=== PATIENT | female | born 1980 | race Caucasian/White ===

== ENCOUNTER 2017-06-18 12:30 | Emergency (ER) | payer OTHER ==
--- NOTE | 2017-06-18 13:09 | ERPHSYRPT ---
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 headache localized to the right temporal region, with nausea vomiting and photosensitivty. pain increased with movement. Physician History: The patient is a 36-year-old female with her complaining of a right sided headache that she woke up with on Monday morning. It is now Monday morning. The headache is getting worse. She has tried Tylenol and Benadryl without relief. She is now nauseated and has vomited. Light really bothers her. She hasn't had a headache this bad in a long time. She denies numbness or tingling. Her past medical history is significant for COPD. Timing/Duration: day(s) (4) Quality: sharpness Head Pain Location: temporal (right), parietal (right) Severity of Pain-Max: severe Severity of Pain-Current: severe Recent Head Trauma: occasional headaches Modifying Factors: Improves With: exposure to light Associated Symptoms: nausea/vomiting, No scotoma, No speech problems, No vision changes, No visual disturbance Previous symptoms: same symptoms as today Allergies/Adverse Reactions: Penicillins Allergy (Verified 06/11/16 12:00) Home Medications: Albuterol 1 puff PO QID PRN 06/11/16 [History] Hx Tetanus, Diphtheria Vaccination/Date Given: Yes Hx Influenza Vaccination/Date Given: No Hx Pneumococcal Vaccination/Date Given: No Immunizations Up to Date: Yes - Review of Systems Constitutional: No Fever, No Chills Eyes: Photophobia Ears, Nose, & Throat: No Symptoms Respiratory: No Cough, No Dyspnea Cardiac: No Chest Pain, No Edema, No Syncope Abdominal/Gastrointestinal: No Abdominal Pain, No Nausea, No Vomiting, No Diarrhea Genitourinary Symptoms: No Dysuria Musculoskeletal: No Back Pain, No Neck Pain Skin: No Rash Neurological: Headache Psychological: No Symptoms Endocrine: No Symptoms Hematologic/Lymphatic: No Symptoms Immunological/Allergic: No Symptoms All Other Systems: Reviewed and Negative - Past Medical History Pertinent Past Medical History: No Neurological History: Migraines ENT History: No Pertinent History Cardiac History: No Pertinent History Respiratory History: Asthma, COPD Endocrine Medical History: No Pertinent History Musculoskeletal History: No Pertinent History GI Medical History: No Pertinent History History: No Pertinent History Psycho-Social History: Anxiety Female Reproductive Disorders: No Pertinent History Other Medical History: gallbladder disorder - Past Surgical History Past Surgical History: Yes Female Surgical History: Tubal Ligation, Other Other Surgical History: D&C. BTL - Social History Smoking Status: Current every day smoker How long have you smoked: 0.5 Exposure to second hand smoke: Yes Drug Use: marijuana Patient Lives Alone: No - Female History Hx Last Menstrual Period: 06/18/17 Hx Now: No - Nursing Vital Signs Nursing Vital Signs: Initial Vital Signs Temperature 98.4 F 06/18/17 12:38 Pulse Rate 106 H 06/18/17 12:38 Respiratory Rate 20 06/18/17 12:38 Blood Pressure 171/45 06/18/17 12:38 O2 Sat by Pulse Oximetry 98 06/18/17 12:38 Pain Scale Pain Intensity 8 - Physical Exam General Appearance: moderate distress Eye Exam: eyes nml inspection, photophobia Ears, Nose, Throat Exam: normal ENT inspection, moist mucous membranes Neck Exam: normal inspection, supple, full range of motion, No meningismus Respiratory Exam: normal breath sounds, lungs clear Cardiovascular Exam: regular rate/rhythm, normal heart sounds Gastrointestinal/Abdominal Exam: soft, No tenderness, No distention Back Exam: normal inspection, normal range of motion Extremity Exam: normal inspection Mental Status Exam: alert, oriented x 3, 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
[2017-06-18] MEDS ORDERED: Phenergan 25 MG INJ IM ONE (13:13)
[2017-06-18] MEDS ORDERED: TORAdol 30 mg Injection IM ONE (13:13)
[2017-06-18] MEDS ORDERED: Phenergan 25 MG INJ ONE (13:18)
[2017-06-18] MEDS ORDERED: TORAdol 30 mg Injection ONE (13:19)
[2017-06-18 14:16] VITALS: BP 116/88; PULSE 89; O2SAT 100
== END 2017-06-18 14:15 | disposition home or self-care (01) ==
LOC: ED 12:30
DX: R51 Headache (principal); J44.9 Chronic obstructive pulmonary disease, unspecified; R11.2 Nausea with vomiting, unspecified
CPT/HCPCS: 96372; 99283; J1885; J2550

== ENCOUNTER 2017-12-17 12:41 | Emergency (ER) | payer OTHER ==
[2017-12-17 13:08] VITALS: BP 153/103; PULSE 105; O2SAT 100
[2017-12-17] MEDS ORDERED: BENADRYL 50 MG/ML IV ONE (13:17)
[2017-12-17] MEDS ORDERED: Sodium Chloride 0.9% 1000 ML 1,000 ML IV SCH (13:30)
[2017-12-17 13:47] LABS: BASOPHIL % 0.4 % (0.0-0.4); Basophil (Absolute #) 0.02 (0-0.4); Eosinophil % 0.2 % (0.00-5.0); Eosinophil (Absolute #) 0.01 (0-0.5); Granulocyte Absolute (ANC) 1.59 (1.4-6.9); Granulocytes % 30.7 % (36.0-66.0); Hematocrit 31.3 % (35-47); Hemoglobin 11.2 gm/dl (12.0-16.0); Lymphocyte (Absolute #) 2.48 (1.0-4.6); Lymphocytes % 47.9 % (24.0-44.0); Mean Cell Volume 89.7 fl (78-100); Mean Corpuscular Hgb Concent. 35.8 g/dl (32-36); Mean Platelet Volume 9.5 fl (6-9.5); Monocyte (Absolute #) 1.08 (0.0-1.3); Monocytes % 20.8 % (0.0-12.0); Platelet Count 431 K/mm3 (150-450); Red Blood Count 3.49 M/mm3 (4.1-5.4); Red Cell Distribution Width 13.7 % (11.5-14.0); White Blood Count 5.2 K/mm3 (4.0-10.5)
--- NOTE | 2017-12-17 14:01 | ERPHSYRPT ---
- History of Present Illness Time Seen by Provider: 12/17/17 12:55 Source: patient Exam Limitations: clinical condition Patient Subjective Stated Complaint: states used some "gelclair" mouth gel for sores in her mouth one hour ago and suddenly had dry mouth and a feeling that her mouth was swelling. also having twitching of left eye. Triage Nursing Assessment: to room per w/c. skin w/d, color sallow. patient very anxious, tearful at times. restless on the cot. hx of myasthenia gravis and lymphoma. taking chemo treatments in [place], in. states is in [place] for an emergency and hasn't been able to see a cancer doctor yet. Physician History: PATIENT WITH A HISTORY OF MYSTHENA GRAVIS, LYMPHOMA, AND METHAMPHAMINE ABUSE. LAST COURSE OF CHEMOTHERAPY 2 WEEKS AGO WHILE LIVING IN [facility] UNDER THE CARE OF AN ONCOLOGIST. PATIENT USED [employer] ORAL MOUTH WASH TODAY FOR ORAL ULCERATIONS AND COMPLAINS OF ACUTE ONSET OF BURNING OF MOUTH AND TWITCHING OF LEFT EYE ASSOCIATED WITH BEING CONFUSED. PATIENT STATES SHE WASHED OUT HER MOUTH PRIOR TO ARRIVAL. Timing/Duration: abrupt onset Severity: moderate ENT Location: mouth (RINSED MOUTH WITH TAP WATER) Prearrival Treatment: no prearrival treatment Modifying Factors: Improves With: other (AFTER USING ADHERENT MOUTH WASH) Associated Symptoms: other (BURNING OF TONGUE AND ORAL CAVITY) Allergies/Adverse Reactions: Penicillins Allergy (Verified 12/17/17 12:54) Home Medications: Albuterol 1 puff PO QID PRN 06/11/16 [History] Benzonatate [Tessalon Perle] 100 mg PO UD 12/17/17 [History] Clonazepam 0.5 mg [Klonopin 0.5 MG] 0.5 mg PO UD 12/17/17 [History] Fluticasone/Vilanterol [Breo Ellipta 100-25 Mcg INH] 1 each IH DAILY 12/17/17 [ History] Nystatin/TCN/Hc/Diphenhydram [Kellie's Magic Mouthwash] 0 ml PO UD 12/17/17 [ History] Omeprazole 20 MG [Prilosec 20 mg] 20 mg PO DAILY 12/17/17 [History] Ondansetron ODT 4 MG [Zofran Odt 4 mg] 4 mg PO Q6H PRN PRN 12/17/17 [ History] Pyridostigmine [place] [Mestinon] 60 mg PO UD 12/17/17 [History] Tramadol HCl 50 mg [Ultram 50 mg] 50 mg PO UD 12/17/17 [History] Hx Tetanus, Diphtheria Vaccination/Date Given: No Hx Influenza Vaccination/Date Given: No Hx Pneumococcal Vaccination/Date Given: No - Review of Systems Constitutional: No Fever, No Chills Eyes: No Symptoms Ears, Nose, & Throat: No Symptoms, Mouth Pain Respiratory: No Cough, No Dyspnea Cardiac: No Symptoms, No Chest Pain, No Edema, No Syncope Abdominal/Gastrointestinal: No Abdominal Pain, No Nausea, No Vomiting, No Diarrhea Genitourinary Symptoms: No Symptoms, No Dysuria Musculoskeletal: No Back Pain, No Neck Pain Skin: No Rash Neurological: No Dizziness, No Focal Weakness, No Sensory Changes Psychological: No Symptoms Endocrine: No Symptoms All Other Systems: Reviewed and Negative - Past Medical History Pertinent Past Medical History: Yes Neurological History: Migraines ENT History: No Pertinent History Cardiac History: No Pertinent History Respiratory History: Asthma, COPD Endocrine Medical History: No Pertinent History Musculoskeletal History: No Pertinent History GI Medical History: No Pertinent History History: No Pertinent History Psycho-Social History: Anxiety Female Reproductive Disorders: No Pertinent History Other Medical History: gallbladder disorder. lymphoma. myasthenia gravis - Past Surgical History Past Surgical History: Yes Musculoskeletal: Orthopedic Surgery Female Surgical History: Tubal Ligation, Other Other Surgical History: D&C. BTL. ankle fx - Social History Smoking Status: Current every day smoker How long have you smoked: 0.5 Exposure to second hand smoke: Yes Drug Use: marijuana Patient Lives Alone: No - Female History Hx Last Menstrual Period: now Hx Now: No - Nursing Vital Signs Nursing Vital Signs: Initial Vital Signs Temperature 98.7 F 12/17/17 12:45 Pulse Rate 105 H 12/17/17 12:45 Respiratory Rate 16 12/17/17 12:45 Blood Pressure 153/103 12/17/17 12:45 O2 Sat by Pulse Oximetry 100 12/17/17 12:45 Pain Scale Pain Intensity 0 - Physical Exam General Appearance: no apparent distress, alert, other (APPEARS HYPERACTIVE) Eye Exam: bilateral eye: PERRL, EOMI Ear Exam: bilateral ear: auricle normal, canal normal, TM normal Nasal Exam: normal inspection Throat Exam: pharynx normal (NO EVIDENCE OF ORAL CANKER ULCERATIONS), moist mucus membranes, No tonsillar exudate Neck Exam: normal inspection, supple Cardiovascular/Respiratory Exam: normal breath sounds, regular rate/rhythm Abdominal Exam: non-tender, soft Neurologic Exam: alert, oriented x 3, sensation nml, other (PATIENT APPEARS PARONOID, HYPERACTIVE), No motor deficits Skin Exam: normal color, warm, dry SpO2 Interpretation: normal SpO2: 100 Oxygen Delivery: Room Air Ordered Tests: Active Orders 24 hr Category Date Time Status EKG-ER Only STAT Care 12/17/17 13:17 Active CBC W DIFF Stat Lab 12/17/17 13:30 Received CMP Stat Lab 12/17/17 13:30 Received ETHYL ALCOHOL Stat Lab 12/17/17 13:30 Received MAGNESIUM Stat Lab 12/17/17 13:30 Received UA W/RFX UR CULTURE Stat Lab 12/17/17 13:44 Ordered Urine Triage Profile Stat Lab 12/17/17 13:21 Uncollected Medication Summary Generic Name Dose Route Start Last Admin Trade Name Freq PRN Reason Stop Dose Admin Sodium Chloride 1,000 mls @ 500 mls/hr 12/17/17 13:30 Sodium Chloride 0.9% 1000 Ml IV 01/16/18 13:29 .Q2H KESHIA Discontinued Medications Generic Name Dose Route Start Last Admin Trade Name Freq PRN Reason Stop Dose Admin Diphenhydramine HCl 25 mg 12/17/17 13:17 Benadryl 50 Mg/Ml IV 12/17/17 13:18 STAT ONE - Progress Progress Note: 12/17/17 14:06 PATIENT REFUSED EKG, HEAD CT SCAN AND ACCESS OF INFUSAPORT, REQUEST AMA, CALL HEAD NURSING FOOD AND 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
[2017-12-17 14:06] LABS: ALKALINE PHOSPHATASE 69 U/L (38-126); ANION GAP 11.7 MEQ/L (5-15); BLOOD UREA NITROGEN 11 mg/dL (7-17); CHLORIDE 107 mmol/L (98-107); Calcium 9.4 mg/dL (8.4-10.2); Carbon Dioxide 25 mmol/L (22-30); Creatinine 1 0.65 mg/dL (0.52-1.04); Glucose 97 mg/dL (74-106); Potassium 3.3 mmol/L (3.5-5.1); SGOT/AST 44 U/L (14-36); SGPT/ALT 44 U/L (0-35); SODIUM 141 mmol/L (137-145); Total Protein 6.7 g/dL (6.3-8.2)
== END 2017-12-17 14:19 | disposition left against medical advice (07) ==
LOC: ED 12:41
DX: K12.30 Oral mucositis (ulcerative), unspecified (principal); Z79.899 Other long term (current) drug therapy
CPT/HCPCS: 36000; 36415; 80053; 80307; 83735; 85025; 99284; J1642; G0480

== ENCOUNTER 2018-02-05 14:23 | Emergency (ER) | payer OTHER ==
[2018-02-05 14:45] VITALS: O2SAT 99
--- NOTE | 2018-02-05 15:04 | ERPHSYRPT ---
- History of Present Illness Time Seen by Provider: 02/05/18 14:56 Source: patient Exam Limitations: no limitations Patient Subjective Stated Complaint: pt reports a spot on her head she noticed last week. states that it has gradually grown and opened yesterday leaking puss. reports dizziness. reports severe pain. Triage Nursing Assessment: pt is aox3, pupils perrl, pt afebrile, pt resps easy and non labored. skin pink warm dry. pt has an abscess to the top of the head. abscess appears to be draining some whitish yellow exudate. skin around the area is red and warm to the touch. Physician History: The patient is a 37-year-old female with her mother complaining of a worsening abscess on the top of her head for one week. 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 She currently has no hair on her head. Last night she put a warm compress on the abscess and it drained pus. She denies fever. Her past medical history is significant for GERD, cancer of the thymus gland, and asthma. Timing/Duration: week(s) (1), gradual onset, worse Quality: painful Severity: moderate Location: scalp Possible Causes: no cause identified Allergies/Adverse Reactions: Penicillins Allergy (Verified 02/05/18 14:45) Home Medications: Albuterol 1 puff PO QID PRN 06/11/16 [History] Benzonatate [Tessalon Perle] 100 mg PO UD 12/17/17 [History] Clonazepam 0.5 mg [Klonopin 0.5 MG] 0.5 mg PO UD 12/17/17 [History] Fluticasone/Vilanterol [Breo Ellipta 100-25 Mcg INH] 1 each IH DAILY 12/17/17 [ History] Nystatin/TCN/Hc/Diphenhydram [Kellie's Magic Mouthwash] 0 ml PO UD 12/17/17 [ History] Omeprazole 20 MG [Prilosec 20 mg] 20 mg PO DAILY 12/17/17 [History] Ondansetron ODT 4 MG [Zofran Odt 4 mg] 4 mg PO Q6H PRN PRN 12/17/17 [ History] Pyridostigmine [place] [Mestinon] 60 mg PO UD 12/17/17 [History] Tramadol HCl 50 mg [Ultram 50 mg] 50 mg PO UD 12/17/17 [History] Hx Tetanus, Diphtheria Vaccination/Date Given: Yes Hx Influenza Vaccination/Date Given: Yes Hx Pneumococcal Vaccination/Date Given: Yes Immunizations Up to Date: Yes - Review of Systems Constitutional: No Fever, No Chills Eyes: No Symptoms Ears, Nose, & Throat: No Symptoms Respiratory: No Cough, No Dyspnea Cardiac: No Chest Pain, No Edema, No Syncope Abdominal/Gastrointestinal: No Abdominal Pain, No Nausea, No Vomiting, No Diarrhea Genitourinary Symptoms: No Dysuria Musculoskeletal: No Back Pain, No Neck Pain Skin: Cellulitis (abscess ) Neurological: No Dizziness, No Focal Weakness, No Sensory Changes Psychological: No Symptoms Endocrine: No Symptoms Hematologic/Lymphatic: No Symptoms Immunological/Allergic: No Symptoms All Other Systems: Reviewed and Negative - Past Medical History Pertinent Past Medical History: Yes Neurological History: Migraines ENT History: No Pertinent History Cardiac History: No Pertinent History Respiratory History: Asthma, COPD Endocrine Medical History: No Pertinent History Musculoskeletal History: No Pertinent History GI Medical History: No Pertinent History History: No Pertinent History Psycho-Social History: Anxiety Female Reproductive Disorders: No Pertinent History Other Medical History: gallbladder disorder. lymphoma. myasthenia gravis - Past Surgical History Past Surgical History: Yes Musculoskeletal: Orthopedic Surgery Female Surgical History: Tubal Ligation, Other Other Surgical History: D&C. BTL. ankle fx - Social History Smoking Status: Current every day smoker How long have you smoked: 0.5 Exposure to second hand smoke: Yes Drug Use: none Patient Lives Alone: No - Female History Hx Now: No - Nursing Vital Signs Nursing Vital Signs: Initial Vital Signs Temperature 98.3 F 02/05/18 14:36 Pulse Rate 101 H 02/05/18 14:36 Respiratory Rate 18 02/05/18 14:36 Blood Pressure 125/88 02/05/18 14:36 O2 Sat by Pulse Oximetry 99 02/05/18 14:36 Pain Scale Pain Intensity 10 - Physical Exam General Appearance: mild distress Eye Exam: PERRL/EOMI, eyes nml inspection Ears, Nose, Throat Exam: normal ENT inspection, pharynx normal, moist mucous membranes Neck Exam: normal inspection, non-tender, supple, full range of motion Respiratory Exam: normal breath sounds, lungs clear, No respiratory distress Cardiovascular Exam: regular rate/rhythm, normal heart sounds Gastrointestinal/Abdomen Exam: soft, mass, No tenderness Pelvic Exam: not done Rectal Exam: not done Back Exam: normal inspection, normal range of motion, No CVA tenderness, No vertebral tenderness Extremity Exam: normal inspection, normal range of motion Neurologic Exam: alert, oriented x 3, cooperative, normal mood/affect, sensation nml, No motor deficits Skin Exam: other (abscess to vertex of scalp with purulent discharge.) SpO2 Interpretation: normal SpO2: 99 Oxygen Delivery: Room Air Ordered Tests: Active Orders 24 hr Category Date Time Status CULTURE,WOUND Stat Lab 02/05/18 15:09 Uncollected Medication Summary Discontinued Medications Generic Name Dose Route Start Last Admin Trade Name Cyril PRN Reason Stop Dose Admin Lidocaine HCl 10 ml 02/05/18 15:22 Xylocaine 1% Hcl 20 Ml Mdv IJ 02/05/18 15:23 STAT ONE Lidocaine HCl Confirm 02/05/18 15:22 Xylocaine 1% Hcl 20 Ml Mdv Administered 02/05/18 15:23 Dose 10 ml .ROUTE .STK-MED ONE Lidocaine HCl Confirm 02/05/18 15:25 Xylocaine 1% Hcl 20 Ml Mdv Administered 02/05/18 15:26 Dose 10 ml .ROUTE .STK-MED ONE Lidocaine HCl Confirm 02/05/18 15:25 Xylocaine 1% Hcl 20 Ml Mdv Administered 02/05/18 15:26 Dose 10 ml .ROUTE .STK-MED ONE - Progress Progress: improved Progress Note: 02/05/18 15:38 The abscess at the vertex of the scalp was gently incise with an 11 blade. Attempts were made to express material from the abscess. Mild amounts of purulent material were expressed. The patient was not able to tolerate the pain. 8 mL of 1% lidocaine within injected around the site. The patient still did not tolerate the procedure. Once again mild amount to scant amount of purulent material was expressed. A bandage was placed. No gauze was applied into the wound. Counseled pt/family regarding: diagnosis, need for follow-up - Departure Time of Disposition: 15:40 Departure Disposition: Home Clinical Impression: Cellulitis Condition: Stable Critical Care Time: No Referrals: CRISTEL FLOWERS [Primary Care Provider] - Additional Instructions: You have an abscess to your scalp. An incision and drainage was performed in the ER. Take clindamycin 300 mg 4 times a day for 10 days. Allow the area to drain freely. Keep it covered with bandages. Take Tylenol 3 one tablet every 4 -6 hours as needed for pain. Please call your oncologist today when you get home or tomorrow morning for follow-up. Prescriptions: Clindamycin HCl 1 cap PO QID #40 capsule Codeine Phosphate/APAP #3 [Tylenol #3 Tablet] 1 tab PO Q4-6HPRN PRN #10 tablet PRN Reason: Pain
[2018-02-05] MEDS ORDERED: XYLOCAINE 1% HCL 20 ML MDV ONE ×3 (15:22→15:25)
[2018-02-05] MEDS ORDERED: TORAdol 30 mg Injection ONE (15:41)
[2018-02-05] MEDS: TORAdol 30 mg Injection IM ONE (15:48)
[2018-02-05] MEDS: XYLOCAINE 1% HCL 20 ML MDV IJ ONE (15:49)
[2018-02-05 16:00] VITALS: BP 130/68; PULSE 90
== END 2018-02-05 15:58 | disposition home or self-care (01) ==
LOC: ED 14:23
PROC: 0H90XZZ Drainage of Scalp Skin, External Approach (ICD-10-PCS; principal; 2018-02-05)
DX: L03.90 Cellulitis, unspecified (principal); Z79.899 Other long term (current) drug therapy; C37 Malignant neoplasm of thymus
CPT/HCPCS: 10060; 96372; 99284; J1885

== ENCOUNTER 2018-02-18 16:05 | Emergency (ER) | payer OTHER ==
[2018-02-18] MEDS ORDERED: Sodium Chloride 0.9% 1000 ML 1,000 ML IV STA (17:01)
[2018-02-18] MEDS ORDERED: LEVOFLOXACIN 750MG/150ML D5W 750 MG/150 ML BAG IV STA (17:01)
[2018-02-18] MEDS ORDERED: DUONEB 0.5-3 MG/3 ml Neb IH ONE ×2 (17:05→17:12)
[2018-02-18] MEDS ORDERED: Sodium Chloride 0.9% 1000 ML 1,000 ML IV SCH (17:15)
[2018-02-18] MEDS ORDERED: Sodium Chloride 0.9% 1000 ML 2,000 ML ONE (17:53)
[2018-02-18] MEDS ORDERED: LEVOFLOXACIN 750MG/150ML D5W 750 MG/150 ML BAG IV ONE (17:53)
[2018-02-18 17:57] LABS: BASOPHIL % 0.5 % (0.0-0.4); Basophil (Absolute #) 0.02 (0-0.4); Eosinophil % 0.3 % (0.00-5.0); Eosinophil (Absolute #) 0.01 (0-0.5); Granulocyte Absolute (ANC) 1.24 (1.4-6.9); Granulocytes % 31.7 % (36.0-66.0); Hematocrit 33.5 % (35-47); Hemoglobin 11.9 gm/dl (12.0-16.0); Lymphocyte (Absolute #) 1.82 (1.0-4.6); Lymphocytes % 46.7 % (24.0-44.0); Mean Cell Volume 94.9 fl (78-100); Mean Corpuscular Hemoglobin 33.7 pg (26-32); Mean Corpuscular Hgb Concent. 35.5 g/dl (32-36); Mean Platelet Volume 9.8 fl (6-9.5); Monocyte (Absolute #) 0.81 (0.0-1.3); Monocytes % 20.8 % (0.0-12.0); Platelet Count 414 K/mm3 (150-450); Red Blood Count 3.53 M/mm3 (4.1-5.4); Red Cell Distribution Width 14.5 % (11.5-14.0); White Blood Count 3.9 K/mm3 (4.0-10.5)
--- NOTE | 2018-02-18 18:02 | ERPHSYRPT ---
- History of Present Illness Source: patient Exam Limitations: clinical condition Patient Subjective Stated Complaint: pt here for sob for 10 days now, no fever, cough Triage Nursing Assessment: pt alert, walked in .,resp labored with excertion, dry cough but states she coughed up blood today-bright red blood x1 Timing/Duration: day(s) Cough Quality/Degree: productive cough (ONSET OF HEMOPTYSIS TODAY) Possible Cause: occasional episodes Modifying Factors: Improves With: coughing Associated Symptoms: shortness of breath International travel in last 2 weeks: No Hx Tetanus, Diphtheria Vaccination/Date Given: Yes Hx Influenza Vaccination/Date Given: Yes Hx Pneumococcal Vaccination/Date Given: Yes Immunizations Up to Date: Yes <ROYAL JOHNSON - Last Filed: 02/18/18 19:07> <RYAN LEUNG - Last Filed: 02/18/18 20:43> - History of Present Illness Time Seen by Provider: 02/18/18 16:30 Physician History: PATIENT WITH A HISTORY OF COPD, MYASTHENIA GRAVIS, 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 PATIENT COMPLAINS OF A PRODUCTIVE COUGH AND DYSPNEA FOR 10 DAYS AND ONSET OF HEMOPTYSIS TODAY. DENIES CHEST PAIN. UNSURE IF SHE HAS FEVER OR CHILLS. (ROYAL JOHNSON) Allergies/Adverse Reactions: Penicillins Allergy (Verified 02/18/18 16:27) Home Medications: Albuterol 1 puff PO QID PRN 06/11/16 [History] Benzonatate [Tessalon Perle] 100 mg PO UD 12/17/17 [History] Clonazepam 0.5 mg [Klonopin 0.5 MG] 0.5 mg PO UD 12/17/17 [History] Fluticasone/Vilanterol [Breo Ellipta 100-25 Mcg INH] 1 each IH DAILY 12/17/17 [ History] Nystatin/TCN/Hc/Diphenhydram [Kellie's Magic Mouthwash] 0 ml PO UD 12/17/17 [ History] Omeprazole 20 MG [Prilosec 20 mg] 20 mg PO DAILY 12/17/17 [History] Ondansetron ODT 4 MG [Zofran Odt 4 mg] 4 mg PO Q6H PRN PRN 12/17/17 [ History] Pyridostigmine Beaver [Mestinon] 60 mg PO UD 12/17/17 [History] - Review of Systems Constitutional: No Fever, No Chills Eyes: No Symptoms Ears, Nose, & Throat: No Symptoms Respiratory: Cough, Dyspnea, Dyspnea on Exertion (VILLAREAL), Other (HEMOPTYSIS) Cardiac: No Symptoms, No Chest Pain, No Edema, No Syncope Abdominal/Gastrointestinal: No Symptoms, No Abdominal Pain, No Nausea, No Vomiting, No Diarrhea Genitourinary Symptoms: No Symptoms, No Dysuria Musculoskeletal: No Symptoms, No Back Pain, No Neck Pain Skin: No Rash Neurological: No Dizziness, No Focal Weakness, No Sensory Changes Psychological: No Symptoms Endocrine: No Symptoms All Other Systems: Reviewed and Negative <ROYAL JOHNSON - Last Filed: 02/18/18 19:07> - Past Medical History Pertinent Past Medical History: Yes Neurological History: Migraines ENT History: No Pertinent History Cardiac History: No Pertinent History Respiratory History: Asthma, COPD Endocrine Medical History: No Pertinent History Musculoskeletal History: No Pertinent History GI Medical History: No Pertinent History History: No Pertinent History Psycho-Social History: Anxiety Female Reproductive Disorders: No Pertinent History Other Medical History: gallbladder disorder, cancer of thymus with mets,in right lung. myasthenia gravis - Past Surgical History Past Surgical History: Yes Musculoskeletal: Orthopedic Surgery Female Surgical History: Tubal Ligation, Other Other Surgical History: D&C,post placed. BTL. ankle fx - Social History Smoking Status: Current every day smoker How long have you smoked: 0.5 Exposure to second hand smoke: Yes Drug Use: marijuana Patient Lives Alone: No - Female History Hx Last Menstrual Period: may Hx Now: No <ROYAL JOHNSON - Last Filed: 02/18/18 19:07> - Physical Exam General Appearance: no apparent distress, alert Eye Exam: PERRL/EOMI, eyes nml inspection Ears, Nose, Throat Exam: normal ENT inspection, TMs normal, pharynx normal, moist mucous membranes Neck Exam: normal inspection, non-tender, supple, full range of motion Respiratory Exam: diminished breath sounds (AT BASES WITH TERMINAL EXPIRATORY WHEEZES NOTED), other, No respiratory distress Cardiovascular Exam: regular rate/rhythm, normal heart sounds Gastrointestinal/Abdomen Exam: soft, normal bowel sounds, No tenderness Back Exam: normal inspection, No CVA tenderness, No vertebral tenderness Extremity Exam: normal inspection, normal range of motion Neurologic Exam: alert, oriented x 3, cooperative, normal mood/affect, sensation nml, No motor deficits Skin Exam: normal color, warm, dry, No rash Lymphatic Exam: No adenopathy SpO2 Interpretation: normal SpO2: 100 Oxygen Delivery: Room Air <ROYAL JOHNSON - Last Filed: 02/18/18 19:07> - Nursing Vital Signs Nursing Vital Signs: Initial Vital Signs Temperature 98.2 F 02/18/18 16:21 Pulse Rate 108 H 02/18/18 16:21 Respiratory Rate 24 02/18/18 16:21 O2 Sat by Pulse Oximetry 99 02/18/18 16:21 Pain Scale Pain Intensity 7 - Course Nursing assessment & vital signs reviewed: Yes <RYAN LEUNG - Last Filed: 02/18/18 20:43> Ordered Tests: Active Orders 24 hr Category Date Time Status Community Health Nurse STAT Care 02/18/18 17:02 Active EKG-ER Only STAT Care 02/18/18 17:01 Active IV Insertion-2nd Peripheral STAT Care 02/18/18 17:01 Active Oxygen-ED Only NASAL CANNULA 2 lpm Care 02/18/18 17:01 Active CHEST WITH CONTRAST [CT] Stat Exams 02/18/18 17:04 Taken BLOOD CULTURE Stat Lab 02/18/18 17:40 Received CBC W DIFF Stat Lab 02/18/18 17:30 Completed CMP Stat Lab 02/18/18 17:30 Completed Lactic Acid Stat Lab 02/18/18 18:45 Completed MAGNESIUM Stat Lab 02/18/18 18:30 Completed PROTIME WITH INR Stat Lab 02/18/18 17:30 Completed VENOUS BLOOD GAS Stat Lab 02/18/18 18:00 Completed Respiratory Nebulizer STAT RT 02/18/18 17:05 Completed Respiratory Therapy Assessment DAILY RT 02/18/18 17:15 Completed Medication Summary Generic Name Dose Route Start Last Admin Trade Name Freq PRN Reason Stop Dose Admin Sodium Chloride 1,000 mls @ 999 mls/hr 02/18/18 17:15 02/18/18 19:15 Sodium Chloride 0.9% 1000 Ml IV 02/18/18 19:15 999 mls/hr .Q1H1M KESHIA Administration Discontinued Medications Generic Name Dose Route Start Last Admin Trade Name Freq PRN Reason Stop Dose Admin Hydrocodone Bitart/Acetaminophen 10 ml 02/18/18 19:18 02/18/18 19:41 Hydrocodone-Acetamin 2.5-108/5 Ml Solution PO 02/18/18 19:19 10 ml STAT STA Administration Hydrocodone Bitart/Acetaminophen Confirm 02/18/18 19:40 Hydrocodone-Acetamin 2.5-108/5 Ml Solution Administered 02/18/18 19:41 Dose 10 ml .ROUTE .STK-MED ONE Albuterol/Ipratropium 3 ml 02/18/18 17:05 02/18/18 17:14 Duoneb 0.5-3 Mg/3 Ml Neb IH 02/18/18 17:06 3 ml STAT ONE Administration Albuterol/Ipratropium Confirm 02/18/18 17:12 Duoneb 0.5-3 Mg/3 Ml Neb Administered 02/18/18 17:13 Dose 3 ml IH .STK-MED ONE Levofloxacin/Dextrose 750 mg in 150 mls @ 100 mls/hr 02/18/18 17:01 02/18/18 17:55 Levofloxacin 750mg/150ml D5w IV 02/18/18 18:30 100 mls/hr STAT STA Administration Sodium Chloride 1,000 mls @ 999 mls/hr 02/18/18 17:01 02/18/18 17:57 Sodium Chloride 0.9% 1000 Ml IV 02/18/18 18:01 999 mls/hr .Q1H1M STA Administration Levofloxacin/Dextrose Confirm 02/18/18 17:53 Levofloxacin 750mg/150ml D5w Administered 02/18/18 17:54 Dose 750 mg in 150 mls @ ud IV .STK-MED ONE Lab/Rad Data: Laboratory Result Diagrams 02/18/18 17:30 02/18/18 17:30 Laboratory Results 02/18/18 02/18/18 02/18/18 Range/Units 18:45 18:30 18:00 WBC (4.0-10.5) K/mm3 RBC (4.1-5.4) M/mm3 Hgb (12.0-16.0) gm/dl Hct (35-47) % MCV (78-100) fl MCH (26-32) pg MCHC (32-36) g/dl RDW (11.5-14.0) % Plt Count (150-450) K/mm3 MPV (6-9.5) fl Gran % (36.0-66.0) % Eos # (Auto) (0-0.5) Absolute Lymphs (auto) (1.0-4.6) Absolute Monos (auto) (0.0-1.3) Lymphocytes % (24.0-44.0) % Monocytes % (0.0-12.0) % Eosinophils % (0.00-5.0) % Basophils % (0.0-0.4) % Absolute Granulocytes (1.4-6.9) Basophils # (0-0.4) PT (9.95-12.35) SECONDS INR (0.8-3.0) pO2/FiO2 Ratio 21.0 % VBG pH 7.46 H (7.32-7.42) VBG pCO2 at Pat Temp 37 L (42-55) mm/Hg VBG pO2 at Pat Temp 81 H (25-40) mm/Hg VBG HCO3 26.3 (22-28) meq/L VBG O2 Sat (Sarah Beth) 97.7 (95-100) VBG Base Excess 2.5 H (-2.0-2.0) VBG Hemoglobin 12.4 VBG Carboxyhemoglobin 7.0 H* (0.0-6.9) % T HGB POC Potassium 3.9 (3.5-5.1) Sodium (137-145) mmol/L Potassium (3.5-5.1) mmol/L Chloride (98-107) mmol/L Carbon Dioxide (22-30) mmol/L Anion Gap (5-15) MEQ/L BUN (7-17) mg/dL Creatinine (0.52-1.04) mg/dL Estimated GFR ML/MIN Glucose (74-106) mg/dL Lactic Acid 1.1 (0.4-2.0) Calcium (8.4-10.2) mg/dL Magnesium 1.7 (1.6-2.3) mg/dL Total Bilirubin (0.2-1.3) mg/dL AST (14-36) U/L ALT (0-35) U/L Alkaline Phosphatase (38-126) U/L Serum Total Protein (6.3-8.2) g/dL Albumin (3.5-5.0) g/dL 02/18/18 02/18/18 02/18/18 Range/Units 17:30 17:30 17:30 WBC 3.9 L (4.0-10.5) K/mm3 RBC 3.53 L (4.1-5.4) M/mm3 Hgb 11.9 L (12.0-16.0) gm/dl Hct 33.5 L (35-47) % MCV 94.9 (78-100) fl MCH 33.7 H (26-32) pg MCHC 35.5 (32-36) g/dl RDW 14.5 H (11.5-14.0) % Plt Count 414 (150-450) K/mm3 MPV 9.8 H (6-9.5) fl Gran % 31.7 L (36.0-66.0) % Eos # (Auto) 0.01 (0-0.5) Absolute Lymphs (auto) 1.82 (1.0-4.6) Absolute Monos (auto) 0.81 (0.0-1.3) Lymphocytes % 46.7 H (24.0-44.0) % Monocytes % 20.8 H (0.0-12.0) % Eosinophils % 0.3 (0.00-5.0) % Basophils % 0.5 (0.0-0.4) % Absolute Granulocytes 1.24 L (1.4-6.9) Basophils # 0.02 (0-0.4) PT 12.3 (9.95-12.35) SECONDS INR 1.06 (0.8-3.0) pO2/FiO2 Ratio % VBG pH (7.32-7.42) VBG pCO2 at Pat Temp (42-55) mm/Hg VBG pO2 at Pat Temp (25-40) mm/Hg VBG HCO3 (22-28) meq/L VBG O2 Sat (Sarah Beth) (95-100) VBG Base Excess (-2.0-2.0) VBG Hemoglobin VBG Carboxyhemoglobin (0.0-6.9) % T HGB POC Potassium (3.5-5.1) Sodium 140 (137-145) mmol/L Potassium 3.8 (3.5-5.1) mmol/L Chloride 106 (98-107) mmol/L Carbon Dioxide 26 (22-30) mmol/L Anion Gap 12.3 (5-15) MEQ/L BUN 7 (7-17) mg/dL Creatinine 0.57 (0.52-1.04) mg/dL Estimated GFR > 60.0 ML/MIN Glucose 93 (74-106) mg/dL Lactic Acid (0.4-2.0) Calcium 9.0 (8.4-10.2) mg/dL Magnesium (1.6-2.3) mg/dL Total Bilirubin 0.20 (0.2-1.3) mg/dL AST 43 H (14-36) U/L ALT 32 (0-35) U/L Alkaline Phosphatase 76 (38-126) U/L Serum Total Protein 7.0 (6.3-8.2) g/dL Albumin 3.9 (3.5-5.0) g/dL <ROYAL JOHNSON - Last Filed: 02/18/18 19:07> - Progress Progress: improved, re-examined Air Movement: good Blood Culture(s) Obtained: Yes Antibiotics given: Yes Counseled pt/family regarding: lab results, diagnosis, need for follow-up, rad results <RYAN LEUNG - Last Filed: 02/18/18 20:43> - Progress Progress Note: 02/18/18 18:04 PATIENT PLACED ON SEPSIS PROTOCOL UPON ARRIVAL 58KG X 30ML, AFTER 2 SETS OF BLOOD CULTURES ADMINISTERED LEVAQUIN 750MG IVPB, LACTIC ACID 1.1, SEPSIS PROTOCOL DISCONTINUED. 02/18/18 19:[address] PENDING. PATIENT CARE ENDORSED TO DR LEUNG AT 1908 FOR DISPOSITION (ROYAL JOHNSON) 02/18/18 19:58 I REVIEWED THE PTS LAB AND CT SCAN OF CHEST RESULTS WITH PT. PT IS AFEBRILE, PTS WBC IS EXPECTED ON CHEMOTX, PT HAS MILD ANEMIA. CT SCAN DOES NOT SHOW A DEFINITE INFILTRATE. HOWEVER, THERE IS QUESTIONABLE INTRALUMINAL FILLING DEFECT LEFT LOWER LOBE HIGHLY SUSPICIOUS FOR PULMONARY EMBOLISM. 02/18/18 20:10 02/18/18 20:34 SPOKE WITH PTS ONCOLOGY GROUP AT [facility]. DR. BARNARD RECOMMENDS LOVENOX 1MG/KG SUBQ NOW THEN RX FOR HOME FOR 2 DAYS. IN ADDITION, PER DR. BARNARD PT DOES NOT NEED ADMISSION SINCE PT IS NOT IN ANY DISTRESS. THIS TYPE OF ISSUE IS COMMON IN CANCER PT, THAT IS, HAVING ASYMPTOMATIC PULMONARY EMBOLUS. PT HAD ONLY ONE EPISODE OF A SCANT AMT OF BLOOD ON HEMOPTYSIS. THE OFFICE WILL CALL PT TOMORROW MORNING. PT AGREES WITH THIS PLAN. I WILL ALSO ADD AN ANTIBX AND HYDROCODONE BASE COUGH SUPPRESSANT WHICH IS HELPING HER. (RYAN LEUNG) <ROYAL JOHNSON - Last Filed: 02/18/18 19:07> - Departure Time of Disposition: 20:01 Departure Disposition: Home Critical Care Time: Yes Critical Care Time(excluding separately billable procedures): 30-74 minutes <RYAN LEUNG - Last Filed: 02/18/18 20:43> - Departure Clinical Impression: Cough, Metastatic cancer, Pulmonary embolism Condition: Stable Referrals: CRISTEL FLOWERS [Primary Care Provider] - Prescriptions: Hydrocodone Bit/Acetaminophen [Hydrocodone-Acetaminophen Soln] 10 ml PO Q8HPRN PRN #120 ml PRN Reason: Cough Enoxaparin Sodium [Lovenox] 60 mg SQ BID #4 dose Levofloxacin [Levaquin 500 MG Tablet] 500 mg PO DAILY #7 tablet
[2018-02-18 18:11] LABS: ALBUMIN 3.9 g/dL (3.5-5.0); ALKALINE PHOSPHATASE 76 U/L (38-126); ANION GAP 12.3 MEQ/L (5-15); BLOOD UREA NITROGEN 7 mg/dL (7-17); CHLORIDE 106 mmol/L (98-107); Carbon Dioxide 26 mmol/L (22-30); Creatinine 1 0.57 mg/dL (0.52-1.04); Glucose 93 mg/dL (74-106); Potassium 3.8 mmol/L (3.5-5.1); SGOT/AST 43 U/L (14-36); SGPT/ALT 32 U/L (0-35); SODIUM 140 mmol/L (137-145)
[2018-02-18 18:13] LABS: INR 1.06 (0.8-3.0)
[2018-02-18] MEDS ORDERED: HYDROCODONE-ACETAMIN 2.5-108/5 ML SOLUTION PO STA (19:18)
[2018-02-18 19:36] LABS: VBG BASE EXCESS 2.5 (-2.0-2.0); VBG HCO3- 26.3 meq/L (22-28); VBG HEMOGLOBIN 12.4; VBG O2 SATURATION 97.7 (95-100); VBG POTASSIUM 3.9 (3.5-5.1); VBG pH 7.46 (7.32-7.42)
[2018-02-18] MEDS ORDERED: HYDROCODONE-ACETAMIN 2.5-108/5 ML SOLUTION ONE (19:40)
[2018-02-18] MEDS ORDERED: Sodium Chloride 0.9% 1000 ML 0 ML ONE (19:40)
[2018-02-18] MEDS ORDERED: ENOXAPARIN SODIUM SQ ONE ×2 (20:33→20:57)
[2018-02-18 21:57] VITALS: BP 124/80; PULSE 84; O2SAT 98
--- NOTE | 2018-02-19 09:41 | XRAY ---
Exam: CT of the chest with IV contrast from 02/18/2018. CTDI: 36.67 Comparison: CT of the chest with IV contrast from 06/11/2016. Indication: 37-year-old female with cough, history of prior surgery for left-sided port placement, congestion 2 weeks, history of cancer of the thymus with lung metastasis, CT with PE protocol per Dr. Hanson. Technique: Post-IV contrast axial images were obtained through the chest using the PE protocol with utilization of 100 ML's of IV Isovue 370 contrast material. Reconstructed coronal MIP images and conventional sagittal images were created and reviewed. Findings: A port is seen just above the left clavicle with the catheter extending into the proximal SVC just beyond the left innominate vein. Minimal convexity of the mid thoracic spine toward the right centered at T6-T7 is seen on the manager research and development image. The invasive cardiovascular technologist left a note that CT imaging was delayed during the IV contrast administration with 2 separate occasions of pausing during the scan because the patient had a "burning sensation" at the IV site. The IV was checked on each of these occasions, and no abnormalities were seen. However, this did compromise evaluation of the pulmonary arteries. I see no definite pulmonary embolism within the main pulmonary artery trunk or right or left main pulmonary arteries. However, evaluation beyond these sites is quite limited. I do note one left lower lobe pulmonary arterial branch on axial images #16 through #23 of series #5 that demonstrates decreased attenuation very suspicious for a left lower lobe pulmonary embolus. The thyroid gland appears unremarkable. A small amount of retrosternal soft tissue density within the superior mediastinum may relate to thymus. However, inferior to this level, there is abnormal lobular soft tissue mass density within the anterior mediastinum and adjacent to the anterior medial portion of the upper right mediastinum measuring a maximum cross-section of its 0.5 cm x 2.35 cm on axial image #123 of series #5. On coronal MIPS #11, this lobular mass density measures about 5.7 cm in height. This represents some worsening as compared to 06/11/2016 and is likely due to metastasis. The remainder of the olaf and mediastinum appears unremarkable. There is a new pleural-based soft tissue mass anteriorly within the right mid to lower lung measuring 6.5 cm in width and 2.35 cm in AP depth. This is suggestive of a pleural-based metastasis. There is also a subtle posterior right lower lobe pleural-based lesion on axial image #295 of series #5 which probably represents a pleural-based metastasis. A slightly larger pleural-based metastasis is seen measuring 1.7 cm in width on axial image #300. There is also a 1.7 cm in diameter pleural-based low-attenuation lesion on axial image #1 just posterior to the confluence of the hepatic veins into the IVC which probably represents a metastasis. There is also a 1.35 cm in diameter low-attenuation lesion abutting the right hemidiaphragm on axial image #305 of series #5 which may represent a pleural-based lesion.. All these pleural-based lesions appear to be new from 06/11/2016. 3 prior mentioned nodular lesions at the medial aspect of the right posterior lung sulcus on the CT study of 06/11/2016 have in general become larger. The largest lesion now measures 3.75 cm in diameter (previously 2.5 cm in diameter) on axial image #306 of series #5. The lungs reveal a nonspecific 2 mm nodular density within the anterior aspect of the left upper lobe on axial image #19 of series #7. It is difficult to tell whether this was present before, although it may be seen on image #16 from the exam of 06/11/2016. I see no other suspicious soft tissue lung nodules. No pneumothorax or pleural effusion is seen. The distal trachea and major central branching bronchi appear open. No suspicious air space infiltrates are seen. I cannot exclude some minimal scarring/atelectasis at the anterior right lower lung field. I believe this is nonspecific. Within the upper abdomen, there is a tiny 5 mm low-attenuation lesion near the dome laterally on axial image #307 of series #5. This is too small to characterize, but may represent tiny cyst. There is also a 5 mm low-attenuation lesion within the lateral segment of the left lobe of the liver on image #312 which might represent a tiny cyst. I also see a 1.6 cm in diameter ill-defined low-attenuation lesion within the lateral aspect of the right lobe on axial image #316 which I believe is unchanged. This might represent a hemangioma. Correlation with a CT using a hemangioma protocol or tagged red blood cell nuclear medicine study may be helpful for further evaluation if clinically desired. There is also an 8 mm low-attenuation lesion at the posterior medial aspect of the right lobe of the liver on image #310. This is not definitely seen on the prior study. Its etiology is unknown, but metastasis is not excluded. The visualized adrenal glands appear unremarkable. The remainder of the upper abdomen appears normal. The skeleton reveals no acute fracture or aggressive bone lesion. Impression: 1. Evaluation for pulmonary embolus is limited. However, there is low-attenuation density within a left lower lobe descending pulmonary artery, well seen on axial image #17 of series #5 which is where very worrisome for a left lower lobe pulmonary embolus. 2. I see lobular soft tissue density within the anterior mediastinum anteromedially on the right which is probably due to malignant disease and has worsened as compared to 06/11/2016. See above. There also appear to be new right lung pleural-based metastases. 3. There are at least 4 low-attenuation lesions within the liver, as described above. 2 tiny hepatic lesions may represent cysts and a 1.6 cm in diameter hepatic lesion might represent a hemangioma, as it is unchanged from 06/11/2016. However, the fourth lesion posterior medially within the right lobe of the liver on image #310 is indeterminate and might represent a metastasis. Follow-up will be needed.
== END 2018-02-18 21:09 | disposition home or self-care (01) ==
LOC: ED 16:05
DX: R05 Cough (principal); C37 Malignant neoplasm of thymus; C78.00 Secondary malignant neoplasm of unspecified lung; I26.09 Other pulmonary embolism with acute cor pulmonale; D64.9 Anemia, unspecified; Z79.899 Other long term (current) drug therapy; G70.00 Myasthenia gravis without (acute) exacerbation; Z72.0 Tobacco use; F12.90 Cannabis use, unspecified, uncomplicated; J44.9 Chronic obstructive pulmonary disease, unspecified; J45.909 Unspecified asthma, uncomplicated
CPT/HCPCS: 36000; 36415; 71260; 80053; 82805; 83605; 83735; 85025; 85610; 87040; 87077; 93005; 93041; 94640; 96360; 96361; 96365; 96372; 96374; 99284; J1642; J1650; J1956; A9270-GY

== ENCOUNTER 2018-02-19 17:15 | Observation (INO) | payer OTHER ==
[2018-02-19] MEDS ORDERED: Sodium Chloride 0.9% 1000 ML 1,000 ML IV STA (18:22)
[2018-02-19] MEDS ORDERED: solu-MEDROL 125 MG IV ONE (18:24)
[2018-02-19] MEDS ORDERED: DUONEB 0.5-3 MG/3 ml Neb IH ONE ×2 (18:24→18:29)
[2018-02-19] MEDS ORDERED: Vancomycin 1GM/ Ns 250ML*** 1 GM/250 ML IVPB IV ONE (18:24)
[2018-02-19] MEDS ORDERED: Robitussin AC Syrup Unit Dose Cup PO ONE (18:26)
[2018-02-19] MEDS ORDERED: Sodium Chloride 0.9% 1000 ML 1,000 ML ONE ×2 (18:39→22:35)
[2018-02-19] MEDS ORDERED: solu-MEDROL 125 MG ONE (18:39)
[2018-02-19] MEDS ORDERED: Vancomycin 1GM/ Ns 250ML*** 250 ML IV ONE (18:39)
[2018-02-19 18:54] LABS: BASOPHIL % 0.8 % (0.0-0.4); Basophil (Absolute #) 0.03 (0-0.4); Eosinophil % 0.3 % (0.00-5.0); Eosinophil (Absolute #) 0.01 (0-0.5); Granulocyte Absolute (ANC) 1.27 (1.4-6.9); Granulocytes % 33.9 % (36.0-66.0); Hemoglobin 12.1 gm/dl (12.0-16.0); Lymphocyte (Absolute #) 1.91 (1.0-4.6); Lymphocytes % 50.9 % (24.0-44.0); Mean Cell Volume 96.4 fl (78-100); Mean Corpuscular Hemoglobin 33.3 pg (26-32); Mean Corpuscular Hgb Concent. 34.6 g/dl (32-36); Mean Platelet Volume 9.7 fl (6-9.5); Monocyte (Absolute #) 0.53 (0.0-1.3); Monocytes % 14.1 % (0.0-12.0); Platelet Count 456 K/mm3 (150-450); Red Blood Count 3.63 M/mm3 (4.1-5.4); Red Cell Distribution Width 14.4 % (11.5-14.0); White Blood Count 3.8 K/mm3 (4.0-10.5)
[2018-02-19] MEDS ORDERED: Robitussin AC Syrup Unit Dose Cup ONE (19:04)
--- NOTE | 2018-02-19 20:17 | ERPHSYRPT ---
- History of Present Illness Time Seen by Provider: 02/19/18 18:10 Source: patient Exam Limitations: clinical condition Patient Subjective Stated Complaint: TO ER C/O POSITIVE BLOOD CULTURES THAT WERE DRAWN 02/19 HERE IN THIS ER FROM [place] ON LEFT CHEST. 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 BLOOD CULTURES X 2 WERE POSITIVE DRAWN FROM HER INFUSAPORT. ADMINISTERED 1 DOSE OF LOVENOX LAST NIGHT AFTER CONSULTATION WITH DR BARNARD, ONCOLOGIST CLINICAL PHARMACIST AT [facility]. BLOOD CULTURES FROM 2 DIFFERENT SITES WERE POSITIVE FOR GRAM + COCCI. THE ONCALL ONCOLOGIST REFERRED PATIENT TO THE EMERGENCY ROOM TONIGHT. PATIENT HAS PERSISTENT PRODUCTIVE COUGH. DENIES HEMOPTYSIS, CHEST PAIN , FEVER OR CHILLS. Timing/Duration: yesterday Severity: mild Modifying Factors: Improves With: movement Associated Symptoms: cough Allergies/Adverse Reactions: Penicillins Allergy (Verified 02/18/18 16:27) Home Medications: Albuterol 1 puff PO QID PRN 06/11/16 [History] Benzonatate [Tessalon Perle] 100 mg PO UD 12/17/17 [History] Clonazepam 0.5 mg [Klonopin 0.5 MG] 0.5 mg PO UD 12/17/17 [History] Fluticasone/Vilanterol [Breo Ellipta 100-25 Mcg INH] 1 each IH DAILY 12/17/17 [ History] Nystatin/TCN/Hc/Diphenhydram [Kellie's Magic Mouthwash] 0 ml PO UD 12/17/17 [ History] Omeprazole 20 MG [Prilosec 20 mg] 20 mg PO DAILY 12/17/17 [History] Ondansetron ODT 4 MG [Zofran Odt 4 mg] 4 mg PO Q6H PRN PRN 12/17/17 [ History] Pyridostigmine [place] [Mestinon] 60 mg PO UD 12/17/17 [History] Hx Tetanus, Diphtheria Vaccination/Date Given: Yes Hx Influenza Vaccination/Date Given: Yes Hx Pneumococcal Vaccination/Date Given: Yes - Review of Systems Constitutional: No Fever, No Chills Eyes: No Symptoms Ears, Nose, & Throat: No Symptoms Respiratory: Wheezing, No Cough, No Dyspnea Cardiac: No Symptoms, No Chest Pain, No Edema, No Syncope Abdominal/Gastrointestinal: No Symptoms, No Abdominal Pain, No Nausea, No Vomiting, No Diarrhea Genitourinary Symptoms: No Symptoms, No Dysuria Musculoskeletal: No Symptoms, No Back Pain, No Neck Pain Skin: No Symptoms, No Rash Neurological: No Dizziness, No Focal Weakness, No Sensory Changes Psychological: No Symptoms Endocrine: No Symptoms All Other Systems: Reviewed and Negative - Past Medical History Pertinent Past Medical History: Yes Neurological History: Migraines ENT History: No Pertinent History Cardiac History: No Pertinent History Respiratory History: Asthma, COPD Endocrine Medical History: No Pertinent History Musculoskeletal History: No Pertinent History GI Medical History: No Pertinent History History: No Pertinent History Psycho-Social History: Anxiety Female Reproductive Disorders: No Pertinent History Other Medical History: gallbladder disorder, cancer of thymus with mets,in right lung. myasthenia gravis - Past Surgical History Past Surgical History: Yes Musculoskeletal: Orthopedic Surgery Female Surgical History: Tubal Ligation, Other Other Surgical History: D&C,post placed. BTL. ankle fx - Social History Smoking Status: Current every day smoker How long have you smoked: 0.5 Exposure to second hand smoke: Yes Drug Use: marijuana Patient Lives Alone: No - Female History Hx Last Menstrual Period: 10/2017 CHEMO Hx Now: No - Nursing Vital Signs Nursing Vital Signs: Initial Vital Signs Temperature 97.7 F 02/19/18 17:57 Pulse Rate 81 02/19/18 17:57 Respiratory Rate 18 02/19/18 17:57 Blood Pressure 112/84 02/19/18 17:57 O2 Sat by Pulse Oximetry 99 02/19/18 17:57 Pain Scale Pain Intensity 0 - Physical Exam General Appearance: no apparent distress, alert Eye Exam: PERRL/EOMI, eyes nml inspection Ears, Nose, Throat Exam: normal ENT inspection, TMs normal, pharynx normal, moist mucous membranes Neck Exam: normal inspection, non-tender, supple, full range of motion, midline tenderness Respiratory Exam: normal breath sounds, wheezing (WITH GOOD AIR EXCHANGE.), No respiratory distress Cardiovascular Exam: regular rate/rhythm, normal heart sounds, normal peripheral pulses Gastrointestinal/Abdomen Exam: soft, normal bowel sounds, No tenderness, No mass Back Exam: normal inspection, normal range of motion, No CVA tenderness, No vertebral tenderness Extremity Exam: normal inspection, normal range of motion, pelvis stable Neurologic Exam: alert, oriented x 3, cooperative, normal mood/affect, nml cerebellar function, nml station & gait, sensation nml, No motor deficits Skin Exam: normal color, warm, dry, No rash Lymphatic Exam: No adenopathy SpO2 Interpretation: normal SpO2: 98 Oxygen Delivery: Room Air Ordered Tests: Active Orders 24 hr Category Date Time Status Up Ad Isabel ROUTINE Activity 02/19/18 23:01 Ordered Call Admit Doctor for Orders ON ADMISSION Care 02/19/18 23:01 Ordered Code Status Order ROUTINE Care 02/19/18 23:00 Ordered IV Care Q6H Care 02/19/18 23:00 Ordered IV Insertion STAT Care 02/19/18 18:[address] in Observation ROUTINE Care 02/19/18 23:00 Ordered Telemetry ROUTINE Care 02/19/18 23:00 Ordered Vital Signs Q4H Care 02/19/18 23:00 Ordered Regular Diet Diet 02/19/18 Breakfast Ordered BLOOD CULTURE Stat Lab 02/19/18 18:45 Received BMP AM.LAB Lab 02/20/18 04:00 Ordered BMP Stat Lab 02/19/18 18:30 Completed CBC W DIFF AM.LAB Lab 02/20/18 04:00 Ordered CBC W DIFF Stat Lab 02/19/18 18:30 Completed Oxygen NASAL CANNULA 2 lpm RT 02/19/18 23:00 Ordered Respiratory Nebulizer STAT RT 02/19/18 18:25 Completed Respiratory Therapy Assessment ASORD RT 02/19/18 18:40 Completed Respiratory Therapy Consult ROUTINE RT 02/19/18 23:00 Ordered Transfer Order Routine Transfer 02/19/18 Ordered Medication Summary Generic Name Dose Route Start Last Admin Trade Name Freq PRN Reason Stop Dose Admin Levofloxacin/Dextrose 750 mg in 150 mls @ 100 mls/hr 02/19/18 22:20 02/19/18 22:32 Levofloxacin 750mg/150ml D5w IV 02/19/18 23:49 100 mls/hr STAT STA Administration Sodium Chloride 1,000 mls @ 250 mls/hr 02/19/18 22:30 02/19/18 22:39 Sodium Chloride 0.9% 1000 Ml IV 03/21/18 22:29 250 mls/hr .Q4H KESHIA Administration Discontinued Medications Generic Name Dose Route Start Last Admin Trade Name Magnusq PRN Reason Stop Dose Admin Albuterol/Ipratropium 3 ml 02/19/18 18:24 02/19/18 18:20 Duoneb 0.5-3 Mg/3 Ml Neb IH 02/19/18 18:25 3 ml STAT ONE Administration Albuterol/Ipratropium Confirm 02/19/18 18:29 Duoneb 0.5-3 Mg/3 Ml Neb Administered 02/19/18 18:30 Dose 3 ml IH .STK-MED ONE Enoxaparin Sodium 60 mg 02/19/18 22:58 02/19/18 23:04 Enoxaparin Sodium SQ 02/19/18 22:59 60 mg STAT ONE Administration Enoxaparin Sodium Confirm 02/19/18 23:02 Enoxaparin Sodium Administered 02/19/18 23:03 Dose 80 mg SQ .STK-MED ONE Guaifenesin/Codeine Phosphate 10 ml 02/19/18 18:26 02/19/18 19:07 Robitussin Ac Syrup Unit Dose Cup PO 02/19/18 18:27 10 ml STAT ONE Administration Guaifenesin/Codeine Phosphate Confirm 02/19/18 19:04 Robitussin Ac Syrup Unit Dose Cup Administered 02/19/18 19:05 Dose 10 ml .ROUTE .STK-MED ONE Sodium Chloride 1,000 mls @ 999 mls/hr 02/19/18 18:22 02/19/18 18:44 Sodium Chloride 0.9% 1000 Ml IV 02/19/18 19:22 999 mls/hr .Q1H1M STA Administration Vancomycin HCl 1 gm in 250 mls @ 167 mls/hr 02/19/18 18:24 02/19/18 18:44 Vancomycin 1gm/ Ns 250ml IV 02/19/18 19:53 167 mls/hr STAT ONE Administration Sodium Chloride Confirm 02/19/18 18:39 Sodium Chloride 0.9% 1000 Ml Administered 02/19/18 18:40 Dose 1,000 mls @ ud .ROUTE .STK-MED ONE Vancomycin HCl Confirm 02/19/18 18:39 Vancomycin 1gm/ Ns 250ml Administered 02/19/18 18:40 Dose 250 mls @ ud IV .STK-MED ONE Levofloxacin/Dextrose Confirm 02/19/18 22:23 Levofloxacin 750mg/150ml D5w Administered 02/19/18 22:24 Dose 750 mg in 150 mls @ ud IV .STK-MED ONE Methylprednisolone Sodium Succinate 125 mg 02/19/18 18:24 02/19/18 18:44 Solu-Medrol 125 Mg IV 02/19/18 18:25 125 mg STAT ONE Administration Methylprednisolone Sodium Succinate Confirm 02/19/18 18:39 Solu-Medrol 125 Mg Administered 02/19/18 18:40 Dose 125 mg .ROUTE .STK-MED ONE Lab/Rad Data: Laboratory Result Diagrams 02/19/18 18:30 02/19/18 18:30 Laboratory Results 02/19/18 02/19/18 Range/Units 18:30 18:30 WBC 3.8 L (4.0-10.5) K/mm3 RBC 3.63 L (4.1-5.4) M/mm3 Hgb 12.1 (12.0-16.0) gm/dl Hct 35.0 (35-47) % MCV 96.4 (78-100) fl MCH 33.3 H (26-32) pg MCHC 34.6 (32-36) g/dl RDW 14.4 H (11.5-14.0) % Plt Count 456 H (150-450) K/mm3 MPV 9.7 H (6-9.5) fl Gran % 33.9 L (36.0-66.0) % Eos # (Auto) 0.01 (0-0.5) Absolute Lymphs (auto) 1.91 (1.0-4.6) Absolute Monos (auto) 0.53 (0.0-1.3) Lymphocytes % 50.9 H (24.0-44.0) % Monocytes % 14.1 H (0.0-12.0) % Eosinophils % 0.3 (0.00-5.0) % Basophils % 0.8 (0.0-0.4) % Absolute Granulocytes 1.27 L (1.4-6.9) Basophils # 0.03 (0-0.4) Sodium 139 (137-145) mmol/L Potassium 4.7 (3.5-5.1) mmol/L Chloride 109 H (98-107) mmol/L Carbon Dioxide 24 (22-30) mmol/L Anion Gap 11.2 (5-15) MEQ/L BUN 6 L (7-17) mg/dL Creatinine 0.53 (0.52-1.04) mg/dL Estimated GFR > 60.0 ML/MIN Glucose 83 (74-106) mg/dL Calcium 9.0 (8.4-10.2) mg/dL - Progress Progress: improved Progress Note: 02/19/18 22:05 OBTAINED 2 ADDITIONAL BLOOD CULTURES, IV VANCOMYCIN 1GM IVPB, [id number] IV, DUONEB AEROSOL [place], LEVAQUIN 750MG IVPB 02/19/18 22:51 02/19/18 22:[address] COX OF [facility] ACCEPTS TRANSFER AT 2240 BUT HAS NO BEDS AVAILABLE Discussed with Dr.: Moreno (DISCUSSED WITH DR MORENO AT 2214 FOR OBSERVATION.) - Departure Time of Disposition: 23:10 Departure Disposition: Observation Clinical Impression: METASTATIC PULMONARY DISEASE, POSITIVE BLOOD CULTURES, Pulmonary embolism, PULMONARY EMBOLISM Condition: Stable Critical Care Time: No Referrals: CRISTEL FLOWERS [Primary Care Provider] -
[2018-02-19 22:10] LABS: ANION GAP 11.2 MEQ/L (5-15); BLOOD UREA NITROGEN 6 mg/dL (7-17); CHLORIDE 109 mmol/L (98-107); Carbon Dioxide 24 mmol/L (22-30); Creatinine 1 0.53 mg/dL (0.52-1.04); Glucose 83 mg/dL (74-106); Potassium 4.7 mmol/L (3.5-5.1); SODIUM 139 mmol/L (137-145)
[2018-02-19] MEDS ORDERED: LEVOFLOXACIN 750MG/150ML D5W 750 MG/150 ML BAG IV STA (22:20)
[2018-02-19] MEDS ORDERED: LEVOFLOXACIN 750MG/150ML D5W 750 MG/150 ML BAG IV ONE (22:23)
[2018-02-19] MEDS ORDERED: Sodium Chloride 0.9% 1000 ML 1,000 ML IV SCH ×2 (22:30→23:00)
[2018-02-19 22:54] VITALS: O2SAT 98
[2018-02-19] MEDS ORDERED: ENOXAPARIN SODIUM SQ ONE ×2 (22:58→23:02)
[2018-02-19] MEDS ORDERED: solu-MEDROL 125 MG IV SCH (23:00)
[2018-02-19] MEDS ORDERED: DUONEB 0.5-3 MG/3 ml Neb IH PRN (23:00)
[2018-02-19] MEDS ORDERED: TYLENOL 325 MG PO PRN (23:00)
[2018-02-19] MEDS ORDERED: ENOXAPARIN SODIUM SQ SCH (23:00)
[2018-02-19] MEDS ORDERED: Zofran 4 MG/2 ML VIAL IV PRN (23:00)
[2018-02-19] MEDS ORDERED: Tessalon Perles 100 MG PO PRN (23:04)
[2018-02-19] MEDS ORDERED: VANCOCIN 1 GM VIAL*** 1 GM in Sodium Chloride 0.9% 250 ML 250 ML IV SCH (23:30)
[2018-02-20 01:06] VITALS: BP 132/76; PULSE 89
[2018-02-20] MEDS ORDERED: LEVOFLOXACIN 750MG/150ML D5W 750 MG/150 ML BAG IV SCH (10:00)
[2018-02-20] MEDS ORDERED: Klonopin 0.5 MG PO SCH (22:00)
== END 2018-02-20 01:05 ==
LOC: ED 17:15 → UNDOADMOB 23:54 → MED SURG 23:54
PROVIDERS: ADMIT Internal Medicine; ATTEND Internal Medicine
DX: Z85.238 Personal history of other malignant neoplasm of thymus (principal); C78.00 Secondary malignant neoplasm of unspecified lung; R78.81 Bacteremia; I26.99 Other pulmonary embolism without acute cor pulmonale; F12.90 Cannabis use, unspecified, uncomplicated; Z72.0 Tobacco use; Z79.899 Other long term (current) drug therapy; J44.9 Chronic obstructive pulmonary disease, unspecified; J45.909 Unspecified asthma, uncomplicated
CPT/HCPCS: 36415; 80048; 85025; 87040; 94640; 96360; 96361; 96365; 96367; 96372; 96374; 99285; G0378; J1650; J1956; J2930; J3370; A9270-GY